=== PATIENT | female | born 1955 | race Caucasian/White ===

== ENCOUNTER 2022-10-19 10:06 | Outpatient (CLI) | payer MEDICARE, BC ==
[2022-10-19 12:42] LABS: Hemoglobin 13.5 g/dL (12.0-15.5)
[2022-10-19 13:39] LABS: Anion Gap 16 mmol/L (10-20); BUN (Urea Nitrogen) 16 mg/dL (9.8-20.1); Calc. Creatinine Clearance 0 mL/min (70-130); Calcium 9.4 mg/dL (7.8-10.44); Carbon Dioxide 25 mmol/L (23-31); Chloride 104 mmol/L (98-107); Estimated GFR 61; Glucose 155 mg/dL (80-115); Potassium 4.2 mmol/L (3.5-5.1); Sodium 141 mmol/L (136-145)
== END 2022-10-19 10:07 | disposition home or self-care (01) ==
LOC: CSHLAB 10:06
PROVIDERS: ATTEND Otolaryngology Otolaryngic Allergy
DX: Z01.818 Encounter for other preprocedural examination (principal); G47.33 Obstructive sleep apnea (adult) (pediatric)
CPT/HCPCS: 80048; 85014; 85018; 93005; 93010

== ENCOUNTER 2022-10-24 08:51 | Day surgery (SDC) | payer MEDICARE, BC ==
[2022-10-19 10:49] VITALS: BMI 31.9
[2022-10-24] MEDS ORDERED: PROPOFOL 20 ML ONE (11:36)
== END 2022-10-24 13:30 | disposition home or self-care (01) ==
LOC: CSHSDC 08:51
PROVIDERS: ATTEND Otolaryngology Otolaryngic Allergy
PROC: 5A09357 Assistance with Respiratory Ventilation, Less than 24 Consecutive Hours, Continuous Positive Airway Pressure (ICD-10-PCS; principal; 2022-10-24)
DX: G47.33 Obstructive sleep apnea (adult) (pediatric) (principal); G43.909 Migraine, unspecified, not intractable, without status migrainosus; I10 Essential (primary) hypertension; E78.5 Hyperlipidemia, unspecified; E11.9 Type 2 diabetes mellitus without complications; Z91.018 Allergy to other foods; Z87.891 Personal history of nicotine dependence; Z79.899 Other long term (current) drug therapy
CPT/HCPCS: 36416; J2704

== ENCOUNTER 2022-12-21 08:41 | Outpatient (CLI) | payer MEDICARE, BC ==
[2022-12-21 10:44] LABS: Hematocrit 43.4 % (34.9-44.5); Hemoglobin 13.8 g/dL (12.0-15.5)
[2022-12-21 11:06] LABS: Anion Gap 17 mmol/L (10-20); BUN (Urea Nitrogen) 17 mg/dL (9.8-20.1); Calc. Creatinine Clearance 0 mL/min (70-130); Calcium 9.5 mg/dL (7.8-10.44); Carbon Dioxide 26 mmol/L (23-31); Chloride 102 mmol/L (98-107); Estimated GFR 64; Glucose 120 mg/dL (80-115); Potassium 4.2 mmol/L (3.5-5.1); Sodium 141 mmol/L (136-145)
== END 2022-12-21 08:42 | disposition home or self-care (01) ==
LOC: CSHLAB 08:41
PROVIDERS: ATTEND Otolaryngology Otolaryngic Allergy
DX: Z01.818 Encounter for other preprocedural examination (principal); G47.33 Obstructive sleep apnea (adult) (pediatric)
CPT/HCPCS: 80048; 85014; 85018; 93005; 93010

== ENCOUNTER 2022-12-26 06:30 | Day surgery (SDC) | payer MEDICARE, BC ==
[2022-12-21 09:04] VITALS: BMI 40.8
[2022-12-26] MEDS ORDERED: Lidocaine 1% w/Epinephrine 1:100K 20 ML VIAL ONE (07:47)
[2022-12-26] MEDS ORDERED: EPINEPHrine 1 MG/ML VIAL ONE (07:47)
[2022-12-26] MEDS ORDERED: Vancomycin 1 GM VIAL ONE (07:48)
[2022-12-26] MEDS ORDERED: CEFAZOLIN 2 GM VIAL ONE (07:48)
[2022-12-26] MEDS ORDERED: PROPOFOL 40 ML ONE (08:15)
[2022-12-26] MEDS ORDERED: fentaNYL 50 mcg/mL 1 mL Vial ONE ×3 (08:15→09:26)
[2022-12-26] MEDS ORDERED: Dexmedetomidine 200 MCG/2 ML VIAL ONE (08:17)
[2022-12-26] MEDS ORDERED: SUGAMMADEX SODIUM 200 MG/2 ML VIAL ONE (08:17)
[2022-12-26] MEDS ORDERED: Lidocaine 2% PF 5 ML VIAL ONE (08:20)
[2022-12-26] MEDS ORDERED: Lidocaine 1% PF 5 ML VIAL ONE (08:20)
[2022-12-26] MEDS ORDERED: Ondansetron PF 4 MG/2 ML Vial ONE (08:20)
[2022-12-26] MEDS ORDERED: PHENYLEPHRINE-NS 100 MCG/ML 10 ML SYRINGE ONE ×2 (08:20→09:19)
[2022-12-26] MEDS ORDERED: ePHEDrine Sulfate 50 MG/10 ML VIAL ONE (08:20)
[2022-12-26] MEDS ORDERED: Dexamethasone 20 MG/5 ML VIAL ONE (08:20)
[2022-12-26] MEDS ORDERED: Rocuronium Bromide 10 MG/ML (10ML VIAL) ONE (08:20)
[2022-12-26] MEDS ORDERED: Metoprolol Tartrate 5 MG/5 ML VIAL ONE (09:19)
[2022-12-26] MEDS ORDERED: Esmolol 100 MG/10 ML VIAL ONE (09:19)
[2022-12-26] MEDS ORDERED: HYDROcodone/Acetaminophen 5/325 mg Tablet ONE (12:14)
== END 2022-12-26 12:50 | disposition home or self-care (01) ==
LOC: CSHSDC 06:30
PROVIDERS: ATTEND Otolaryngology Otolaryngic Allergy
PROC: 0JH60MZ Insertion of Stimulator Generator into Chest Subcutaneous Tissue and Fascia, Open Approach (ICD-10-PCS; principal; 2022-12-26)
DX: G47.33 Obstructive sleep apnea (adult) (pediatric) (principal); E11.9 Type 2 diabetes mellitus without complications; I10 Essential (primary) hypertension; E78.5 Hyperlipidemia, unspecified; Z79.899 Other long term (current) drug therapy; Z87.891 Personal history of nicotine dependence; Z90.89 Acquired absence of other organs; Z79.84 Long term (current) use of oral hypoglycemic drugs; Z79.4 Long term (current) use of insulin
CPT/HCPCS: 64582; 70360; 71046; J0171; J3010; C1787; C1820; C1898; J1100; J2001; J2405; J2704; J3370